=== PATIENT | female | born 1970 | race Hispanic/Latino ===

== ENCOUNTER 2018-10-24 15:00 | Inpatient (IN) | payer BC ==
[~2018-10-24] VITALS: Ht 162.6 cm; Wt 86.6 kg
[2018-10-24 16:41] LABS: APPEARANCE,URINE Clear (CLEAR); BILIRUBIN,URINE Negative (NEGATIVE); COLOR,URINE Yellow (YELLOW); GLUCOSE, URINE (UA) Negative (NEGATIVE); KETONES,URINE Negative (NEGATIVE); LEUKOCYTE ESTERASE ,URINE Negative (NEGATIVE); NITRATE,URINE Negative (NEGATIVE); OCCULT BLOOD,URINE Negative (NEGATIVE); PH,URINE 7.5 (5.0-8.0); PROTEIN,URINE Negative (NEGATIVE)
[2018-10-24 16:43] VITALS: BP 137/85
[2018-10-24] MEDS ORDERED: LEVO25TA4 PO (16:54)
[2018-10-24] MEDS ORDERED: ACET-66 PO (16:54)
[2018-10-25] VITALS (22 sets, daily range): BP systolic 99–143; BP diastolic 60–80
[2018-10-25] MEDS: CEFAZOLIN SODIUM 1 GM VIAL IVP ONE ×2 (08:00→11:40)
[2018-10-25] MEDS ORDERED: METOCLOPRAMIDE 10 MG/2 ML VIAL ONE (09:18)
[2018-10-25] MEDS ORDERED: KETOROLAC TROMETHAMINE 15MG/ML ONE (09:18)
[2018-10-25] MEDS ORDERED: ACETAMINOPHEN EXTRA STRENGTH 500 MG TABLET ONE (09:18)
[2018-10-25] MEDS ORDERED: CEFAZOLIN SODIUM 1 GM VIAL ONE ×3 (09:18→14:11)
[2018-10-25] MEDS ORDERED: LACTATED RINGERS 1000ML 1,000 ML IV ONE (09:19)
[2018-10-25] MEDS ORDERED: OXYCODONE HCL 10 MG TAB.SR.12H PO ONE (09:19)
[2018-10-25] MEDS ORDERED: CELECOXIB 200 MG CAP ONE (09:19)
[2018-10-25] MEDS ORDERED: TRANEXAMIC ACID 1000MG/10ML IV ONE ×2 (10:11→15:13)
[2018-10-25] MEDS ORDERED: LIDOCAINE PF 2% 5ML ABBOJECT ONE (10:34)
[2018-10-25] MEDS ORDERED: PROPOFOL 10 MG/ML 20ML VIAL IV ONE (10:34)
[2018-10-25] MEDS ORDERED: MIDAZOLAM HCL 1 MG/ML 2ML VIAL ONE (10:34)
[2018-10-25] MEDS ORDERED: FENTANYL CITRATE PF 50 MCG/1 ML 2ML VIAL ONE (10:34)
[2018-10-25] MEDS ORDERED: ROCURONIUM 10MG/1ML SYR 10 MG/ML ML ONE ×3 (10:34→13:33)
[2018-10-25] MEDS ORDERED: DEXAMETHASONE SOD PHOSPHATE 4 MG/ML 1ML VIAL ONE ×2 (10:35→11:58)
[2018-10-25] MEDS ORDERED: ROPIVACAINE 0.5% 5MG/ML 30ML IJ ONE (10:39)
[2018-10-25] MEDS ORDERED: ONDANSETRON HCL 4 MG/2 ML VIAL ONE (11:58)
[2018-10-25] MEDS ORDERED: NEOSTIGMINE 5MG/5ML SYR IV ONE (14:43)
[2018-10-25] MEDS ORDERED: GLYCOPYRROLATE 1 MG/5 ML SYRINGE ONE (14:43)
[2018-10-25] MEDS ORDERED: POTASSIUM CHLORIDE 20 MEQ ERTAB PO PRN (15:00)
[2018-10-25] MEDS ORDERED: ONDANSETRON HCL 4 MG/2 ML VIAL IVP PRN (15:00)
[2018-10-25] MEDS ORDERED: DiphenhydrAMINE HCL 50 MG/ML VIAL IVP PRN (15:00)
[2018-10-25] MEDS ORDERED: POTASSIUM CHLORIDE 20MEQ/100ML 100 ML IV PRN (15:00)
[2018-10-25] MEDS ORDERED: CALCIUM CARBONATE 500 MG TABLET PO PRN (15:00)
[2018-10-25] MEDS ORDERED: FERROUS FUMARATE 324 MG TABLET PO PRN (15:00)
[2018-10-25] MEDS ORDERED: TRAMADOL HCL 50 MG TABLET PO PRN (15:00)
[2018-10-25] MEDS ORDERED: LIDOCAINE HCL-MPF 1% 2ML VIAL IVP PRN (15:00)
[2018-10-25] MEDS ORDERED: OXYCODONE HCL 5 MG TAB PO PRN (15:00)
[2018-10-25] MEDS ORDERED: POTASSIUM CHLORIDE 10% ELIXIR 20 MEQ/15 ML UDCUP PO PRN (15:00)
[2018-10-25] MEDS ORDERED: MEPERIDINE-PF 25 MG/ML SYG ONE ×2 (15:32→15:45)
[2018-10-25] MEDS: SODIUM CHLORIDE 0.9% 1000ML 1,000 ML IV SCH (16:30)
[2018-10-25] MEDS: ACETAMINOPHEN EXTRA STRENGTH 500 MG TABLET PO SCH ×2 (16:30→23:52)
--- NOTE | 2018-10-25 17:30 | NUR ---
INITIAL Met w pt post op; live w spouse douglas who will provide transport home indp of adl's prior to surgery, no dme- no stairs in home, safe and accessible; employed, will be off work for the summer; angeline for [facility] and renaissence dme for wkr and 07/28 chairIsauracm will follow Addendum: 10/26/18 at 1508 by JOSE MCLEOD RN CM Amended: Links added.
[2018-10-25] MEDS: KETOROLAC TROMETHAMINE 15MG/ML IV PRN (18:47)
[2018-10-25] MEDS: CELECOXIB 200 MG CAP PO SCH (21:06)
[2018-10-25] MEDS: FAMOTIDINE 20MG TAB 20 MG TAB PO SCH (21:06)
[2018-10-25] MEDS: ASPIRIN 325 MG TABLET PO SCH (21:06)
[2018-10-25] MEDS: PREGABALIN 25 MG CAP PO SCH (21:06)
[2018-10-25] MEDS: CEFAZOLIN SODIUM 1 GM VIAL IVP SCH (21:08)
[2018-10-26] VITALS (7 sets, daily range): BP systolic 84–131; BP diastolic 52–69
[2018-10-26] MEDS: SODIUM CHLORIDE 0.9% 1000ML 1,000 ML IV SCH ×2 (00:53→10:53)
[2018-10-26 04:42] LABS: HEMATOCRIT 29.1 % (36-48); MEAN CORPUSCULAR HEMOGLOBIN 30.1 pg (27.0-33.0); MEAN CORPUSCULAR HGB CONC 33.7 g/dL (32.0-36.0); MEAN CORPUSCULAR VOLUME 89.3 fL (79-99); PLATELET COUNT (AUTO) 202 K/uL (130-400); RED BLOOD CELL COUNT(AUTO) 3.26 MIL/uL (4.00-5.50); RED CELL DISTRIBUTION WIDTH 13.7 % (11.0-15.5)
[2018-10-26] MEDS: CEFAZOLIN SODIUM 1 GM VIAL IVP SCH (04:45)
[2018-10-26 04:53] LABS: CREATININE 0.9 mg/dL (0.5-1.5); POTASSIUM 3.9 mmol/L (3.5-5.1)
[2018-10-26] MEDS: LEVOTHYROXINE 25 MCG TABLET PO SCH (06:27)
[2018-10-26] MEDS: ACETAMINOPHEN EXTRA STRENGTH 500 MG TABLET PO SCH ×3 (06:31→23:20)
--- NOTE | 2018-10-26 08:00 | NUR ---
LOW BP NOTED BLOOD PRESSURE OF 84/60 WITH PULSE OF 78. ASYMPTOMATIC AT THE MOMENT. DR. MCDONALD CALLED TO BE MADE AWARE, MESSAGE LEFT, PENDING CALL BACK. PT WILL CONTINUE ON NS AT 100ML/HR. WILL MONITOR PT CLOSELY.
[2018-10-26] MEDS: FAMOTIDINE 20MG TAB 20 MG TAB PO SCH ×2 (09:00→20:32)
[2018-10-26] MEDS: PREGABALIN 25 MG CAP PO SCH ×2 (09:00→20:31)
[2018-10-26] MEDS: POLYETHYLENE GLYCOL 3350 17 GM POWD.PACK PO SCH (09:00)
[2018-10-26] MEDS: CELECOXIB 200 MG CAP PO SCH ×2 (09:00→20:31)
[2018-10-26] MEDS: ASPIRIN 325 MG TABLET PO SCH ×2 (09:00→20:31)
[2018-10-26] MEDS: KETOROLAC TROMETHAMINE 15MG/ML IV PRN (09:05)
--- NOTE | 2018-10-26 12:00 | NUR ---
LOW BP BLOOD PRESSURE NOTED TO BE 85/58 WITH PULSE OF 76. DR. MCDONALD CALLED TO REPORT BLOOD PRESSURE. CONTINUES WITH NS AT 100ML/HR. PER PT, ASYMPTOMATIC. WILL MONITOR PT CLOSELY.
[2018-10-26 14:27] LABS: HEMATOCRIT 26.6 % (36-48)
[2018-10-26] MEDS: OXYCODONE HCL 5 MG TAB PO PRN ×2 (18:25→20:30)
[2018-10-27 03:25] VITALS: BP 92/51
[2018-10-27 04:07] LABS: HEMATOCRIT 24.4 % (36-48)
[2018-10-27] MEDS: ACETAMINOPHEN EXTRA STRENGTH 500 MG TABLET PO SCH (06:01)
[2018-10-27] MEDS: LEVOTHYROXINE 25 MCG TABLET PO SCH (06:01)
--- NOTE | 2018-10-27 06:32 | NUR ---
DRESSING CHANGE Removed old dressing. Incision with dermabond, no bleeding or redness. Mild swelling noted. Incision cleansed with NS, pat dried, painted with betadine, covered with gauze, and secured with tape.
[2018-10-27 07:40] VITALS: BP 96/60
[2018-10-27] MEDS: CELECOXIB 200 MG CAP PO SCH (08:25)
[2018-10-27] MEDS: ASPIRIN 325 MG TABLET PO SCH (08:25)
[2018-10-27] MEDS: PREGABALIN 25 MG CAP PO SCH (08:25)
[2018-10-27] MEDS: POLYETHYLENE GLYCOL 3350 17 GM POWD.PACK PO SCH (08:26)
[2018-10-27] MEDS: FAMOTIDINE 20MG TAB 20 MG TAB PO SCH (08:26)
[2018-10-27] MEDS ORDERED: HYDR-4457 PO (08:47)
[2018-10-27] MEDS ORDERED: ASPI-1012 PO (08:47)
[2018-10-27] MEDS ORDERED: FERR324T10 PO (08:47)
[2018-10-27 11:22] VITALS: BP 95/54
[2018-10-27] MEDS ORDERED: BISACODYL 10 MG SUPP.RECT RC ONE (15:18)
[2018-10-27 15:51] VITALS: BP 97/57
[2018-10-27 16:20] VITALS: BP 120/80
--- NOTE | 2018-10-27 16:45 | NUR ---
Discharge teaching in the room w patient and family at side. Emphasis on Dr. Arreguin' discharge orders for activity, incision care, medications, and follow up appt, as well as s/s to monitor for, and when to seek emergency care / call 911. Written rx for asa, Hemocyte, and [place] given to pt. Discussed route, purpose, frequency, and duration of treatment, as well as side effects and adverse effects. PIV removed, tip intact. Dressed with sterile 2x2 and band aid after hemostasis. Dressing to right hip changed. No active drainage, post op swelling and bruising noted. Skin edges intact, Dermabond in place. Painted with Betadine per md orders. Dressed with sterile 4x4 and medipore tape. Report called to [facility] nurse Diane Dejesus, PROPERTY CONDITION ASSESSOR @ [phone]. Pt wheeled to front lobby by [facility] staff for transport home via private car. Pt in stable condition at time of discharge.
[2018-10-28] MEDS ORDERED: BISACODYL 10 MG SUPP.RECT RC PRN (15:00)
== END 2018-10-27 16:45 | disposition home health service (06) | DRG 470 ==
LOC: EDSTATUS 15:00 → DAHIP 10-25 08:02 → 4AH 10-25 16:33
PROVIDERS: ADMIT Orthopaedic Surgery; ATTEND Orthopaedic Surgery
PROC: 0SR901Z Replacement of Right Hip Joint with Metal Synthetic Substitute, Open Approach (ICD-10-PCS; principal; 2018-10-25 12:00)
PROC: 0SUA09Z Supplement Right Hip Joint, Acetabular Surface with Liner, Open Approach (ICD-10-PCS; 2018-10-25 12:00)
DX: M16.11 Unilateral primary osteoarthritis, right hip (principal); I10 Essential (primary) hypertension; E03.9 Hypothyroidism, unspecified; Z90.710 Acquired absence of both cervix and uterus; Z90.721 Acquired absence of ovaries, unilateral; Z88.5 Allergy status to narcotic agent; Z83.3 Family history of diabetes mellitus; Z82.49 Family history of ischemic heart disease and other diseases of the circulatory system
CPT/HCPCS: 36415; 72170; 73503; 80048; 81003; 85014; 85018; 85027; 86850; 86900; 86901; 86922; 96374; 96375; 97039; C1776; G0378; J0690; J1100; J1885; J2001; J2175; J2250; J2405; J2704; J2710; J2765; J2795; J3010; J3490; J7120

== ENCOUNTER → 2022-09-25 | Outpatient (CLI) | payer OTHER ==
[~2022-09-25] MED LIST: ACET-66 PO; ASPI-1012 PO; FERR324T10 PO; HYDR-4457 PO; LEVO25TA4 PO
== END | disposition home or self-care (01) ==
LOC: RAH 09:31
PROVIDERS: ATTEND Nurse Practitioner Family
DX: Z13.6 Encounter for screening for cardiovascular disorders (principal)
CPT/HCPCS: 75571

== ENCOUNTER → 2024-04-10 | Outpatient (CLI) | payer OTHER ==
--- NOTE | 2024-04-10 16:25 | HMCIMG ---
CT CORONARY CALCIFICATION SCORING: Anatomic images were reviewed. The calcium score is being generated and reported separately. This report is for the visualized anatomy only. Visualized portions of the lungs are clear. Hilar and mediastinal structures appear normal. Osseous structures are unremarkable. Impression: 1. Negative noncardiac anatomic findings. 2. The calcium score is 0 consistent with absence of calcified plaque. CT was performed with one or more following dose reduction techniques: automated exposure control, adjustment of the mA and kv according to patient's size, or use of a iterative reconstruction technique.
== END | disposition home or self-care (01) ==
LOC: RAH 15:04
PROVIDERS: ATTEND Nurse Practitioner Family
DX: Z13.6 Encounter for screening for cardiovascular disorders (principal)
CPT/HCPCS: 75571

== ENCOUNTER → 2024-11-08 | Outpatient (CLI) | payer BC ==
--- NOTE | 2024-11-08 10:43 | HMCIMG ---
BONE DENSITOMETRY: HISTORY: Unspecified menopausal and perimenopausal disorder Comparison: none FINDINGS: BMD measured at AP spine L1-L4 is 0.975 g/cm2 with a T-score of -0.7 Bone density is up to 10% below young normal. This patient is considered normal according to WHO criteria. Fracture risk is low. BMD measured at Left Femoral Neck is 0.926 g/cm2 with a T-score of 0.4 Bone density is up to 10% below young normal. This patient is considered normal according to WHO criteria. Fracture risk is low. BMD measured at Left Femoral Total is 0.965 g/cm2 with a T-score of 0.0 Bone density is up to 10% below young normal. This patient is considered normal according to WHO criteria. Fracture risk is low. IMPRESSION: Normal bone mineral density.
== END | disposition home or self-care (01) ==
LOC: RAH 07:59
PROVIDERS: ATTEND Nurse Practitioner Family
DX: N95.9 Unspecified menopausal and perimenopausal disorder (principal)
CPT/HCPCS: 77080